=== PATIENT | male | born 1965 | race Caucasian/White ===

== ENCOUNTER → 2019-09-13 | Outpatient (CLI) | payer BC ==
--- NOTE | 2019-09-13 11:53 | XR ---
EXAMINATION TYPE: XR abdomen 1V DATE OF EXAM: 09/13/2019 HISTORY: Pain Comparison: 11/28/2014 Single KUB is submitted for interpretation. Findings: Right renal calculi: At least 2 calculi right kidney 1 upper pole measuring 7.6 mm and second lower p ole measuring 4.2 mm. Right ureteral calculi: None Visualized. Left renal calculi: 1.5 cm calculus lower pole left kidney with an adjacent 3 mm calculus. Left ureteral calculi: None Visualized. Pelvic calcifications: None Visualized. Bowel gas pattern is unremarkable. No free air. No mass effects. IMPRESSION: 1. Bilateral nephrolithiasis.
== END | disposition home or self-care (01) ==
LOC: RADXRMAIN 11:33
PROVIDERS: ATTEND Urology
DX: N20.0 Calculus of kidney (principal)
CPT/HCPCS: 74018

== ENCOUNTER 2022-06-16 11:13 | Emergency (ER) | payer BC ==
[2022-06-16 11:28] VITALS: BP 134/77; PULSE 78; RESP 18; TEMP 97.5
[2022-06-16] MEDS ORDERED: KETOROLAC 15 MG/ML 1 ML VIAL IM STA (12:46)
[2022-06-16] MEDS ORDERED: ORPHENADRINE 30 MG/ML 2 ML VIAL IM STA (12:46)
--- NOTE | 2022-06-16 12:49 | ED ---
Back Pain HPI - General Chief Complaint: Back Pain/Injury Stated Complaint: back pain Time Seen by Provider: 06/16/22 12:41 Source: patient, family, RN notes reviewed, old records reviewed Limitations: no limitations - History of Present Illness Initial Comments: This is a well-appearing 57-year-old male that presents to the emergency room with complaints of left lower back pain on and off for a week. Patient states that he has a job where he stands up and is bounced around a lot. He believes it may be work related. Last night the pain became worse and states is worse wi th bending, turning or twisting movements. No previous back trauma. No fevers, nausea vomiting or diarrhea. No incontinence of bowel or bladder. He does have history of diabetes and kidney stones. Denies any hematuria. MD Complaint: back pain -: week(s) (2) Similar Symptoms Previously: No Place: work Radiation: none Severity scale (1-10): 6 Consistency: intermittent Improves With: immobilization Worsens With: movement, other (Bending, twisting) Associated Symptoms: denies other symptoms - Related Data Previous Rx's Medication Instructions Recorded Cyclobenzaprine [Flexeril] 10 mg PO TID PRN #15 tab 06/16/22 Lidocaine 5% Patch [Lidoderm] 1 patch TOPICAL DAILY 14 Days #14 06/16/22 patch Allergies Allergy/AdvReac Type Severity Reaction Status Date / Time No Known Allergies Allergy Verified 06/16/22 11:28 Review of Systems ROS Statement: Those systems with pertinent positive or pertinent negative responses have been documented in the HPI. ROS Other: All systems not noted in ROS Statement are negative. Past Medical History Past Medical History: Diabetes Mellitus Additional Past Medical History / Comment(s): DM 2, kidney stone History of Any Multi-Drug Resistant Organisms: None Reported Past Surgical History: No Surgical Hx Reported Past Psychological History: No Psychological Hx Reported Smoking Status: Never smoker Past Alcohol Use History: Daily Past Drug Use History: None Reported General Exam Limitations: no limitations General appearance: alert, in no apparent distress Head exam: Present: atraumatic, normocephalic Neck exam: Present: full ROM. Absent: tenderness, meningismus, lymphadenopathy Respiratory exam: Absent: respiratory distress, accessory muscle use Cardiovascular Exam: Present: regular rate Extremities exam: Present: full ROM, normal capillary refill. Absent: pedal edema, calf tenderness Back exam: Present: paraspinal tenderness (Left lumbar). Absent: CVA tenderness (R), CVA tenderness (L), vertebral tenderness, rash noted Expanded Back exam: Absent: saddle anesthesia Neurological exam: Present: alert, oriented X3, other (Antalgic) Expanded Patient oriented to: Present: person, place, time Speech: Present: fluid speech Motor strength exam: RUE: 5, LUE: 5, RLE: 5, LLE: 5 Eye Response: (4) open spontaneously Motor Response: (6) obeys commands Verbal Response: (5) oriented [place] Total: 15 Psychiatric exam: Present: normal affect, normal mood Skin exam: Present: warm, dry, normal color. Absent: cyanosis, diaphoretic, petechiae, pallor Course Vital Signs 06/16/22 11:24 Temperature 97.5 F L Pulse Rate 78 Respiratory 18 Rate Blood Pressure 134/77 O2 Sat by Pulse 98 Oximetry Medical Decision Making - Medical Decision Making Patient is able to stand and bear weight. No bowel or bladder incontinence, no fevers, no recent surgeries. Denies shortness of breath or chest pain. No red flag signs. Patient states that this was likely exacerbated at work a couple weeks ago. He was given Norflex and Toradol in the emergency room. He was also given Lidoderm patch and a prescription for Flexeril. Directed to continue Tylenol and Motrin over the counter and return to the emergency room with any new or concerning symptoms. Urinalysis is negative for infection or hematuria. Vital signs are stable. Case discussed with Dr. Eli. - Lab Data Lab Results 06/16/22 Range/Units 13:04 Urine Color Yellow Urine Appearance Clear (Clear) Urine pH 5.5 (5.0-8.0) Ur Specific Waves 1.039 H (1.001-1.035) Urine Protein 1+ H (Negative) Urine Glucose (UA) 1+ H (Negative) Urine Ketones Negative (Negative) Urine Blood Negative (Negative) Urine Nitrite Negative (Negative) Urine Bilirubin Negative (Negative) Urine Urobilinogen <2.0 (<2.0) mg/dL Ur Leukocyte Esterase Negative (Negative) Urine RBC 1 (0-5) /hpf Urine WBC 3 (0-5) /hpf Amorphous Sediment Rare H (None) /hpf Urine Mucus Few H (None) /hpf Disposition Clinical Impression: Back pain Disposition: HOME SELF-CARE Instructions (If sedation given, give patient instructions): Acute Low Back Pain (ED) Additional Instructions: Take Flexeril along with Tylenol and Motrin as needed for pain. Use the Lidoderm patches as prescribed. Follow-up with your primary care doctor this week. Return to the emergency room with any new or concerning symptoms. Prescriptions: Cyclobenzaprine [Flexeril] 10 mg PO TID PRN #15 tab PRN Reason: Muscle Spasm Lidocaine 5% Patch [Lidoderm] 1 patch TOPICAL DAILY 14 Days #14 patch Is patient prescribed a controlled substance at d/c from ED?: No Referrals: Lakisha Cramer DO [Primary Care Provider] - 1-2 days
[2022-06-16 13:23] LABS: Amorphous Sediment,Urine Rare /hpf; Appearance,Urine Clear (Clear); Bilirubin,Urine Negative (Negative); Blood,Urine Negative (Negative); Color,Urine Yellow; Glucose,Urine (UA) 1+ (Negative); Ketones,Urine Negative (Negative); Leukocyte Esterase,Urine Negative (Negative); Mucus,Urine Few /hpf; Nitrite,Urine Negative (Negative); PH, Urine 5.5 (5.0-8.0); Protein,Urine 1+ (Negative); RBC,Urine 1 /hpf (0-5); Specific Gravity,Urine 1.039 (1.001-1.035); Urobilinogen,Urine <2.0 mg/dL (<2.0); WBC,Urine 3 /hpf (0-5)
[2022-06-16] MEDS ORDERED: LIDOCAINE 5% PATCH TOPICAL SCH (13:45)
== END 2022-06-16 14:28 | disposition home or self-care (01) ==
LOC: EC 11:13
DX: M54.50 Low back pain, unspecified (principal); E11.9 Type 2 diabetes mellitus without complications; Z79.899 Other long term (current) drug therapy
CPT/HCPCS: 81001; 99283; 96372 ×2; J2360; J1885